=== PATIENT | female | born 1985 | race Caucasian/White ===

== ENCOUNTER 2016-12-06 22:48 | Emergency (ER) | payer SELFPAY ==
[2016-12-06 22:56] VITALS: BP 146/76
== END 2016-12-06 23:09 | disposition left against medical advice (07) ==
LOC: ED 22:48
DX: Z53.21 Procedure and treatment not carried out due to patient leaving prior to being seen by health care provider (principal)

== ENCOUNTER 2016-12-26 16:39 | Outpatient (CLI) | payer MEDICAID ==
--- NOTE | 2016-12-28 05:09 | XRAY Report ---
EXAM: RIGHT ANKLE RADIOGRAPHY EXAM DATE: 12/26/2016 04:53 PM. CLINICAL HISTORY: Ankle pain, right. COMPARISON: None. TECHNIQUE: 3 views. FINDINGS: Bones: Possible small osteochondral defect at the lateral aspect of the dome of the talus. Otherwise no fracture seen. Joints: No dislocation. Ankle mortise appears intact. No ankle joint effusion is seen. Soft Tissues: Grossly unremarkable. IMPRESSION: 1. Possible small osteochondral defect at the lateral aspect of the dome of the talus. If clinically indicated, consider MRI for further evaluation. [facility] Referring Provider Line: [phone] SITE ID: [id number]
== END 2016-12-26 16:40 | disposition home or self-care (01) ==
LOC: DI.N 16:39
PROVIDERS: ATTEND Family Medicine
DX: M25.571 Pain in right ankle and joints of right foot (principal)

== ENCOUNTER 2017-01-28 15:15 | Outpatient (CLI) | payer MEDICAID | END 2017-01-28 15:16 | LOC: LAB.N 15:15 | PROVIDERS: ATTEND Family Medicine | DX: Z13.89 Encounter for screening for other disorder (principal) | CPT/HCPCS: 36415; 86787 ==

== ENCOUNTER 2017-05-01 02:57 | Outpatient (CLI) | payer MEDICAID ==
[2017-05-01 19:31] LABS: BASOPHILS # (AUTO) 0.1 10^3/uL (0.0-0.1); BASOPHILS % (AUTO) 1.2 %; EOSINOPHILS # (AUTO) 0.1 10^3/uL (0.0-0.7); EOSINOPHILS % (AUTO) 1.7 %; HGB - HEMOGLOBIN 14.4 g/dL (12.0-16.0); LYMPHOCYTES # (AUTO) 3.2 10^3/uL (1.5-3.5); LYMPHOCYTES % (AUTO) 44.1 %; MEAN CORPUSCULAR HEMOGLOBIN 31.9 pg (27.0-31.0); MEAN CORPUSCULAR HGB CONC 33.4 g/dL (32.0-36.0); MEAN CORPUSCULAR VOLUME 95.7 fL (81.0-99.0); MEAN PLATELET VOLUME 9.4 fL (7.9-10.8); MONOCYTES # (AUTO) 0.3 10^3/uL (0.0-1.0); MONOCYTES % (AUTO) 4.5 %; NEUTROPHILS # (AUTO) 3.5 10^3/uL (1.5-6.6); NEUTROPHILS % (AUTO) 48.5 %; RED CELL DISTRIBUTION WIDTH 12.5 % (12.0-15.0); UNCORRECTED WHITE BLOOD COUNT 7.2 x10^3/uL; WHITE BLOOD COUNT 7.2 x10^3/uL (4.8-10.8)
[2017-05-01 19:41] LABS: ALBUMIN/GLOBULIN RATIO 1.2 (1.0-2.2); BILIRUBIN,TOTAL 0.3 mg/dL (0.2-1.0); BUN - BLOOD UREA NITROGEN 15 mg/dL (6-20); CALCIUM 9.2 mg/dL (8.5-10.3); CARBON DIOXIDE - CO2 23 mmol/L (21-32); CHLORIDE 106 mmol/L (101-111); CREATININE 0.7 mg/dL (0.4-1.0); GFR - MDRD 98 (>89); GLUCOSE 115 mg/dL (70-100); POTASSIUM 3.8 mmol/L (3.5-5.0); SODIUM 138 mmol/L (135-145); TOTAL PROTEIN 7.4 g/dL (6.7-8.2)
[2017-05-01 20:11] LABS: THYROID STIMULATING HORMONE 1.89 uIU/mL (0.34-5.60)
[2017-05-01 20:17] LABS: PROLACTIN 9.12 ng/mL
[2017-05-01 20:38] LABS: FOLLICLE STIMULATING HORMONE 7.73 mIU/mL
[2017-05-01 20:40] LABS: LUTEINIZING HORMONE 8.88 mIU/mL
[2017-05-07 09:31] LABS: TEST RESULT REPORT
== END 2017-05-01 02:58 | disposition home or self-care (01) ==
LOC: LAB.N 02:57
PROVIDERS: ATTEND Family Medicine
DX: L68.0 Hirsutism (principal); N64.52 Nipple discharge
CPT/HCPCS: 36415; 80053; 81599; 82670; 83001; 83002; 84146; 84403; 84443; 85025

== ENCOUNTER 2018-12-30 08:00 | Outpatient (CLI) | payer MEDICAID, OTHER ==
[2018-12-30 19:42] LABS: BILIRUBIN,URINE NEGATIVE (NEGATIVE); GLUCOSE, URINE (UA) NEGATIVE (NEGATIVE); KETONES,URINE (UA) NEGATIVE (NEGATIVE); LEUKOCYTE ESTERASE, URINE NEGATIVE (NEGATIVE); NITRITE,URINE NEGATIVE (NEGATIVE); OCCULT BLOOD,URINE NEGATIVE (NEGATIVE); PROTEIN,URINE NEGATIVE (NEGATIVE); UROBILINOGEN,URINE 0.2 (NORMAL) E.U./dL (NORMAL)
[2018-12-30 19:43] LABS: CLARITY,URINE CLEAR (CLEAR)
== END 2018-12-30 23:59 | disposition home or self-care (01) ==
LOC: LAB.R 08:00
PROVIDERS: ATTEND Physician Assistant Medical
DX: R30.0 Dysuria (principal)
CPT/HCPCS: 81001; 81003; 87086

== ENCOUNTER 2019-10-17 17:23 | Outpatient (CLI) | payer OTHER | END 2019-10-17 17:24 | disposition home or self-care (01) | LOC: COV 17:23 | PROVIDERS: ATTEND Family Medicine | DX: R05 Cough (principal); R50.9 Fever, unspecified | CPT/HCPCS: 81599 ==

== ENCOUNTER 2019-11-14 16:59 | Outpatient (CLI) | payer OTHER | END 2019-11-14 17:00 | disposition home or self-care (01) | LOC: COV 16:59 | PROVIDERS: ATTEND Family Medicine | DX: R50.9 Fever, unspecified (principal); M79.10 Myalgia, unspecified site; R53.83 Other fatigue | CPT/HCPCS: 81599 ==

== ENCOUNTER 2019-12-22 08:00 | Outpatient (CLI) | payer OTHER ==
[2019-12-22 12:06] LABS: BASOPHILS # (AUTO) 0.1 10^3/uL (0.0-0.1); BASOPHILS % (AUTO) 0.6 %; EOSINOPHILS # (AUTO) 0.1 10^3/uL (0.0-0.7); EOSINOPHILS % (AUTO) 1.6 %; HGB - HEMOGLOBIN 14.3 g/dL (12.0-16.0); LYMPHOCYTES # (AUTO) 2.7 10^3/uL (1.5-3.5); LYMPHOCYTES % (AUTO) 33.5 %; MEAN CORPUSCULAR HEMOGLOBIN 31.8 pg (27.0-31.0); MEAN CORPUSCULAR HGB CONC 32.7 g/dL (32.0-36.0); MEAN CORPUSCULAR VOLUME 97.3 fL (81.0-99.0); MEAN PLATELET VOLUME 10.6 fL (7.9-10.8); MONOCYTES # (AUTO) 0.4 10^3/uL (0.0-1.0); MONOCYTES % (AUTO) 5.3 %; NEUTROPHILS # (AUTO) 4.8 10^3/uL (1.5-6.6); NEUTROPHILS % (AUTO) 58.8 %; PLT - PLATELET COUNT 239 10^3/uL (130-450); RED BLOOD COUNT 4.49 10^6/uL (4.20-5.40); RED CELL DISTRIBUTION WIDTH 12.5 % (12.0-15.0); WHITE BLOOD COUNT 8.1 x10^3/uL (4.8-10.8)
[2019-12-22 12:51] LABS: ALBUMIN 3.7 g/dL (3.2-5.5); ALBUMIN/GLOBULIN RATIO 1.3 (1.0-2.2); ALKALINE PHOSPHATASE 75 IU/L (42-121); ALT ALANINE AMINOTRANSFERASE 26 IU/L (10-60); AST ASPARTATE AMINOTRANSFERASE 25 IU/L (10-42); BILIRUBIN,TOTAL 0.8 mg/dL (0.2-1.0); BUN - BLOOD UREA NITROGEN 17 mg/dL (6-20); CALCIUM 9.5 mg/dL (8.5-10.3); CARBON DIOXIDE - CO2 25 mmol/L (21-32); CHLORIDE 103 mmol/L (101-111); CHOL/HDL RATIO 2.4 (<4.4); CHOLESTEROL 150 mg/dL; CREATININE 0.6 mg/dL (0.4-1.0); GLUCOSE 101 mg/dL (70-100); HDL CHOLESTEROL 62 mg/dL; LDL CHOLESTEROL,CALCULATED 32 mg/dL; LDL/HDL RATIO 0.5 (<4.4); SODIUM 136 mmol/L (135-145); TOTAL PROTEIN 6.6 g/dL (6.7-8.2); URIC ACID 6.3 mg/dL (2.6-7.2); VLDL CHOLESTEROL 56 mg/dL
[2019-12-22 13:01] LABS: CRP - C-REACTIVE PROTEIN < 1.0 mg/dL (0-1.0)
[2019-12-22 13:28] LABS: RHEUMATOID FACTOR NEGATIVE (Negative)
[2019-12-24 14:24] LABS: ANA SCREEN NEGATIVE (NEGATIVE)
== END 2019-12-22 23:59 | disposition home or self-care (01) ==
LOC: LAB.WCP 08:00
PROVIDERS: ATTEND Registered Nurse
DX: M25.529 Pain in unspecified elbow (principal); M25.549 Pain in joints of unspecified hand; G89.29 Other chronic pain; R53.83 Other fatigue; F33.9 Major depressive disorder, recurrent, unspecified; J45.909 Unspecified asthma, uncomplicated; M79.673 Pain in unspecified foot
CPT/HCPCS: 36415; 80053; 80061; 83721; 84443; 84550; 85025; 86038; 86140; 86430

== ENCOUNTER 2021-11-06 08:00 | Outpatient (CLI) | payer SELFPAY | END 2021-11-06 23:59 | disposition home or self-care (01) | LOC: LAB.N 08:00 | PROVIDERS: ATTEND Physician Assistant | DX: U07.1 COVID-19 (principal) ==

== ENCOUNTER 2022-05-19 22:32 | Outpatient (CLI) | payer SELFPAY | END 2022-05-19 22:33 | disposition left against medical advice (07) | LOC: EMS 22:32 | DX: S99.921A Unspecified injury of right foot, initial encounter (principal); V03.90XA Pedestrian on foot injured in collision with car, pick-up truck or van, unspecified whether traffic or nontraffic accident, initial encounter ==